=== PATIENT | female | born 1945 | race Two or more races ===

== ENCOUNTER → 2017-11-22 | Outpatient (CLI) | payer MEDICARE ==
--- NOTE | 2017-11-22 11:40 | Diagnostic Imaging Report ---
PROCEDURE: CT ABDOMEN AND PELVIS WITHOUT CONTRAST TECHNIQUE: The abdomen and pelvis were scanned utilizing a multidetector helical scanner from the diaphragm to the lesser trochanter after the oral administration of water. No IV contrast was administered. Coronal and sagittal multiplanar reformations were obtained. COMPARISON: None. INDICATIONS: RIGHT FLANK PAIN FINDINGS: ABSENCE OF INTRAVENOUS CONTRAST DECREASES SENSITIVITY FOR DETECTION OF FOCAL LESIONS AND VASCULAR PATHOLOGY. LOWER THORAX: A 3 mm nodule along the right major fissure (series 3, image 3) is indeterminate, likely a benign intraparenchymal lymph node. HEPATOBILIARY: No focal hepatic lesions. No biliary ductal dilatation. SPLEEN: No splenomegaly. PANCREAS: No focal masses or ductal dilatation. ADRENALS: No adrenal nodules. KIDNEYS/URETERS: No hydronephrosis, stones, or solid mass lesions. 1.3 cm hypodensity in the interpolar region of the right kidney (series 3, image 61) is probably a cyst. 1.0 cm homogenously hyperdense lesion in the inferior pole of the right kidney (series 3, image 67) measures 86.7 HU. This probably represents a hemorrhagic cyst. PELVIC ORGANS/BLADDER: Coarse calcifications in the posterior uterus probably reflect degenerated fibroid. The bladder is unremarkable. PERITONEUM / RETROPERITONEUM: No free air or fluid. LYMPH NODES: No lymphadenopathy. VESSELS: Moderate atherosclerotic calcifications of aorta and its branches. GI TRACT: No distention or wall thickening. Visualized portion of the appendix is normal. The appendiceal tip is obscured by surrounding bowel loops. Small hiatal hernia. BONES AND SOFT TISSUES: Postsurgical changes of prior left mastectomy are partially visualized. Degenerative spondylosis at L3-L4. IMPRESSION: No renal or ureteral stones. No specific findings to explain the patient's pain. There is a 1.0 cm hyperdense lesion in the right kidney which probably represents a hemorrhagic cyst. Consider follow up renal ultrasound in 3-6 months for further evaluation. Dictated by: Nilesh Weiner M.D. on 11/22/2017 at 11:42 Electronically approved by: Nilesh Weiner M.D. on 11/22/2017 at 11:42
== END ==
LOC: CT 10:43
PROVIDERS: ATTEND Urology
DX: N20.0 Calculus of kidney (principal)
CPT/HCPCS: 74176

== ENCOUNTER → 2017-11-28 | Outpatient (CLI) | payer MEDICARE ==
--- NOTE | 2017-11-28 16:18 | Diagnostic Imaging Report ---
Examination: CT Thoracic Spine without Contrast History: Back pain since Sunday. Comparison studies: None Technique: Axial images were reformatted obtained through the thoracic spine. Coronal and sagittal reconstructions obtained from the axial data. Intravenous contrast: None Findings: Alignment: Normal kyphosis. No scoliosis. Soft tissues: Atherosclerotic calcification of the thoracic aorta. Paraspinal muscles: No abnormalities Vertebrae: No fractures, infection or neoplasm. Degenerative changes: Known degenerative disc or foraminal or canal stenosis. There is, however, right lateral bridging osteophytosis from T3 through T9. Additional finding: Left apical pleural thickening. IMPRESSION: No acute thoracic spine abnormality. Signed by: Dr. Crystal Sun M.D. on 11/28/2017 4:14 PM
== END ==
LOC: CT 13:53
PROVIDERS: ATTEND Family Medicine
DX: M54.6 Pain in thoracic spine (principal)
CPT/HCPCS: 72128

== ENCOUNTER → 2019-02-10 | Outpatient (CLI) | payer MEDICARE | LOC: RAD 12:23 | PROVIDERS: ATTEND Family Medicine | DX: R60.0 Localized edema (principal) | CPT/HCPCS: 93971 ==

== ENCOUNTER → 2019-03-28 | Outpatient (CLI) | payer MEDICARE | LOC: RAD 13:14 | PROVIDERS: ATTEND Family Medicine | DX: R60.0 Localized edema (principal) | CPT/HCPCS: 93971 ==

== ENCOUNTER 2019-04-09 08:15 | Emergency (ER) | payer MEDICARE ==
[~2019-04-09] VITALS: Ht 157.5 cm; Wt 69.4 kg
--- OUTSIDE RECORDS SUMMARY | 2019-04-09 08:17 | XMS REPORT ---
Author Author [facility] Address Unknown Phone Unavailable Care Team Providers Care Manager Video Games Name Role Phone Prem BERNARD Unavailable Unavailable HAMPEL, GRETCHEN Unavailable Unavailable Payers Payer Name Policy Type Policy Number Effective Date Expiration Date Problems This patient has no known problems. Allergies, Adverse Reactions, Alerts Allergy Name Allergy Type Status Severity Reaction(s) Onset Date Inactive Date Treating Clinician Comments phenazopyridine HCl DA Active [place] 2010-08-19 00:00:00 codeine DA Active [place] 2010-08-19 00:00:00 Medications This patient has no known medications. Results Test Description Test Time Test Comments Text Results Atomic Results Result Comments [facility] 2018-04-19 13:15:00 RUN DATE: 04/19/18 [place] [facility] PAGE 1 RUN TIME: 1316 Specimen Inquiry RUN USER: INTERFACE PATIENT: PARTH STAFFORD LOC: YASH U #: [id number] AGE/SX: 72/F [facility] DR: Amrik Goyal MD : 43 BED: A DIS: 04/16/18 STATUS: DIS Prem TLOC: SPEC #: [id number] RECD: 04/15/18 STATUS: [place] REQ #: [id number] RAJNI: 04/15/[address]: Amrik Goyal MD ENTERED: 04/15/18 SP TYPE: AXILLA OTHR DR: Arpita Bernard MD TUMOR REGISTRYORDERED: GROSS COPIES TO: Amrik Goyal MD [address] [place] [address] Arpita Bernard MD [address] [place], [place] [id number] TUMOR REGISTRY MARKERS: ABNORMAL TISSUE, FROZEN SECTIONS, MALIGNANCY PROCEDURES: GROSS (04/19/18-1016) TISSUES: 1. RIGHT AXILLARY REGION - SENTINAL NODE 2. RIGHT BREAST, NOS - TOTAL MASTECTOMY CLINICAL HISTORY COLLECTION DATE: 04/15/18 CARCINOMA RIGHT BREAST COMMENT CAP Approved Surgical Pathology Cancer Case Rtforql-Ibbpet-Esutzglv Carcinoma of the Breast Procedure: Total mastectomy Specimen laterality: Right Tumor site: Upper outer quadrant Tumor size: Greatest dimension of largest invasive focus: 2.5 cm Histologic type: Invasive carcinoma of no special type (ductal, not otherwise specified) Histologic grade: CONTINUED ON NEXT PAGE RUN DATE: 04/19/18 [place] [employer] [facility] PAGE 2 RUN TIME: 1316 Specimen Inquiry RUN USER: INTERFACE --------- SPEC #: [id number] PATIENT: GILBERT STAFFORDTY #[id number] (Continued) COMMENT (Continued) Glandular tubular formation: Score 3 Nuclear pleomorphism: Score 2 Mitotic rate: Score 1 Overall grade: Grade 2 (Score 6) Ductal carcinoma in situ: Not identified Surgical margins: Uninvolved by invasive carcinoma: 1.5 cm from anterior superior margin Regional lymph nodes: Uninvolved by tumor cells Number of sentinel lymph nodes examined: 2 Number of lymph nodes examined: 2 Treatment effect: No known presurgical therapy Lymphovascular invasion: Not identified Pathologic stage classification: (p)TNM, (AJCC 8th edition) pT2 pN0 Ancillary studies are reported to have been performed on previous biopsy ([facility] specimen ID# [id number], report pending). FINAL DIAGNOSIS Right axillary sentinel lymph nodes, excision: TWO LYMPH NODES WITH REACTIVE FEATURES (0/2) NEGATIVE FOR MALIGNANCY Right breast, simple mastectomy: INVASIVE DUCTAL CARCINOMA WITH CENTRAL SCLEROSIS, HISTOLOGIC GRADE 2, see microscopic description and comment LESION MEASURES 2.5 CM IN GREATEST DIAMETER LESION IDENTIFIED 1.5 CM FROM CLOSEST SURGICAL MARGIN, ANTERIOR SUPERIOR OTHER SURGICAL MARGINS OF RESECTION MORE WIDELY UNINVOLVED BY TUMOR NO LYMPHOVASCULAR INVASION IDENTIFIED NIPPLE, NO PATHOLOGIC ALTERATION SKIN WITH SOLAR ELASTOSIS, NEGATIVE FOR MALIGNANCY NO INTRADUCTAL CARCINOMA COMPONENT IDENTIFIED PATCHY MILD STROMAL FIBROSIS IN ADJACENT BREAST TISSUE RRB/adrian A [phone], [phone] MACROSCOPIC The first specimen is received fresh labeled with the patient's name and identified as "right axillary sentinel lymph node". It consists of two lymph nodes identified within yellow fatty tissue. The smaller lymph node measures 0.6 cm in greatest diameter and the larger lymph node measures 2.5 X 1.7 X 1.0 cm. Both lymph nodes are entirely submitted for frozen section evaluation. Frozen section diagnosis: CONTINUED ON NEXT PAGE RUN DATE: 04/19/18 [facility] PAGE 3 RUN TIME: 1316 Specimen Inquiry RUN USER: INTERFACE SPEC #: [id number] PATIENT: EMIGDIO STAFFORDMICAELA #[id number] (Continued) MACROSCOPIC (Continued) TWO LYMPH NODES, NO MALIGNANCY IDENTIFIED, DEFER TO PERMANENT SECTIONS (RRB/DMW) The staining of the fresh frozen section is adequate. Section Code: FS1A- one lymph node bisected; 1B-1C- one lymph node bisected. The second specimen is received in formalin, labeled with the patient's name and identified as "right total mastectomy". It consists of a simple mastectomy specimen with additional fatty tissue beneath the inferior portion of the skin ellipse. The skin ellipse is lo with medium pigmentation and measures 21.5 X up to 12.2 cm. The areola and nipple are present. The areola measures 4.5 X 4.0 cm. The nipple is slightly everted. The breast measures 22 cm from medial to lateral, 23.5 cm from superior to inferior and ranges in thickness from 3.0 cm inferiorly up to 6.8 cm and the thickest portion of the breast (beneath the skin ellipse). No focal lesions are seen on the skin surface. A firm lo mass is palpable in the central portion of the right upper quadrant. The lesion is lo with minute areas of hemorrhage. The lesion measures 2.5 X 2.5 X up to 1.5 cm. The lesion occurs 1.5 cm from the anterior superior margin of resection, 4.5 cm from deep margin of resection and 6.5 from the anterior inferior margin of resection. Tumor is identified 3.0 cm beneath the skin surface. The lesion is well delineated from the surrounding adipose tissue and has pushing to irregular borders. Sectioning through the remainder of the breast shows approximately 95% fatty tissue with minimal fibrous parenchyma. No other focal lesions are seen. Ink Code: blue, margin superior to skin ellipse; green, margin inferior to skin ellipse; black, deep. Section Code: 2A- nipple; 2B-2C- sections of lesion; 2D-2E- sections of closest margins, perpendicular sections; 2F- skin from area overlying tumor; 2G- sales representative raw fibers upper inner quadrant; 2H- sales representative raw fibers outer quadrant. GROSS PERFORMED AT [facility] [address] [place] [address], [place] [address] [phone] MICROSCOPIC Sections of the first specimen show two lymph nodes with reactive features. No metastatic carcinoma is identified. Sections from the second specimen show a well delineated area of invasive d uctal carcinoma with prominent central sclerosis. Calcifications are not identified and confluent areas of necrosis are not seen. Very focal hemorrhage is present. The tumor cells are arranged as solid aggregates and nests with little tubule formation (3/3). The malignant cells have moderately pleomorphic nuclei, intermediate nuclear grade CONTINUED ON NEXT PAGE RUN DATE: 04/19/18 [facility] PAGE 4 RUN TIME: 1316 Specimen Inquiry RUN USER: INTERFACE SPEC #: [id number] PATIENT: PARTH STAFFORD #[id number] (Continued) MICROSCOPIC (Continued) (2/3). Mitotic activity is low (1/3). This gives a Cranston histologic score of 6 corresponding to a histologic grade 2 (moderately differentiated). The surgical margins of resection are uninvolved with the closest margin being anterior superior. All other margins are uninvolved. No lymphovascular invasion is identified. Sections of the nipple and skin are negative for malignancy. MICROSCOPIC PERFORMED AT [facility] All of the stains, including any controls performed, stain appropriately. [facility] [address] [place] [address] [phone] PERFORMING SITE Diagnosis performed at: [facility] [address] [place] [address] Signed SIGNATURE ON FILE [facility] 04/19/[address] THORACIC SPINE WO [place] [address] Patient Name: PARTH STAFFORD MR #: [id number] : 1945 Age/Sex: 72/F Req #: [id number] Adm Physician: Ordered by: ARPITA BERNARD MD Report #: [id number] Location: CT Room/Bed: Procedure: [id number] CT/CT THORACIC SPINE WO Exam Date: 11/28/17 Exam Time: 1505 REPORT STATUS: Signed Examination: CT Thoracic Spine without Contrast History: Back pain since Sunday. Comparison studies: None Technique: Axial images were reformatted obtained through the thoracic spine. Coronal and sagittal reconstructions obtained from the axial data. Intravenous contrast: None Findings: Alignment: Normal kyphosis. No scoliosis. Soft tissues: Atherosclerotic calcification of the thoracic aorta. Paraspinal muscles: No abnormalities Vertebrae: No fractures, infection or neoplasm. Degenerative changes: Known degenerative disc or foraminal or canal stenosis. There is, however, right lateral bridging osteophytosis from T3 through T9. Additional finding: Left apical pleural thickening. IMPRESSION: No acute thoracic spine abnormality. Signed by: Dr. Ani Sun M.D. on 11/28/2017 4:14 PM Dictated By: ANI SCHULTE MD 13 Transcribed By: YFN on 11/28/171613 COPY TO: ARPITA BERNARD MD CT ABDOMEN/PELVIS WO [place] [address] Patient Name: PARTH STAFFORD MR #: [id number] : 1945 Age/Sex: 72/F Req #: [id number] Adm Physician: Ordered by: GRETCHEN OCHOA MD Report #: [id number] Location: CT Room/Bed: Procedure: [id number] CT/CT ABDOMEN/PELVIS WO Exam Date: 11/22/17 Exam Time: 1110 REPORT STATUS: Signed PROCEDURE: CT ABDOMEN AND PELVIS WITHOUT CONTRAST TECHNIQUE: The abdomen and pelvis were scanned utilizing a multidetector helical scanner from the diaphragm to the lesser trochanter after the oral administration of water. No IV contrast was administered. Coronal and sagittal multiplanar reformations were obtained. COMPARISON: None. INDICATIONS: RIGHT FLANK PAIN FINDINGS: ABSENCE OF INTRAVENOUS CONTRAST DECREASES SENSITIVITY FOR DETECTION OF FOCAL LESIONS AND VASCULAR PATHOLOGY. LOWER THORAX: A 3 mm nodule along the right major fissure (series 3, image 3) is indeterminate, likely a benign intraparenchymal lymph node. HEPATOBILIARY: No focal hepatic lesions. No biliary ductal dilatation. SPLEEN: No splenomegaly. PANCREAS: No focal masses or ductal dilatation. ADRENALS: No adrenal nodules. KIDNEYS/URETERS: No hydronephrosis, stones, or solid mass lesions. 1.3 cm hypodensity in the interpolar region of the right kidney (series 3, image 61) is probably a cyst. 1.0 cm homogenously hyperdense lesion in the inferior pole of the right kidney (series 3, image 67) measures 86.7 HU. This probably represents a hemorrhagic cyst. PELVIC ORGANS/BLADDER: Coarse calcifications in the posterior uterus probably reflect degenerated fibroid. The bladder is unremarkable. PERITONEUM / RETROPERITONEUM: No free air or fluid. LYMPH NODES: No lymphadenopathy. VESSELS: Moderate atherosclerotic calcifications of aorta and its branches. GI TRACT: No distention or wall thickening. Visualized portion of the appendix is normal. The appendiceal tip is obscured by surrounding bowel loops. Small hiatal hernia. BONES AND SOFT TISSUES: Postsurgical changes of prior left mastectomy are partially visualized. Degenerative spondylosis at L3-L4. IMPRESSION: No renal or ureteral stones. No specific findings to explain the patient's pain. There is a 1.0 cm hyperdense lesion in the right kidney which probably represents a hemorrhagic cyst. Consider follow up renal ultrasound in 3-6 months for further evaluation. Dictated by: Mellisa Weiner M.D. on 11/22/2017 at 11:42 Electronically approved by: Mellisa Weiner M.D. on 11/22/2017 at 11:42 Dictated By: MELLISA WEINER MD 1142 Transcribed By: RJ on 11/22/17 1142 COPY TO: GRETCHEN OCHOA MD
[2019-04-09] MEDS ORDERED: ASPIRIN 81 MG CHEW TAB PO ONE (08:30)
[2019-04-09 08:53] LABS: BASOPHILS # (AUTO) 0.1 (0.0-0.1); BASOPHILS % 0.8 % (0.0-1.0); EOSINOPHILS # (AUTO) 0.3 (0.0-0.4); EOSINOPHILS % 4.2 % (0.0-6.0); HEMATOCRIT 39.1 % (34.2-44.1); LYMPHOCYTES # (AUTO) 2.3 (1.0-3.2); LYMPHOCYTES % 29.1 % (18.0-39.1); MEAN CORPUSCULAR HEMOGLOBIN 28.1 pg (28-32); MEAN CORPUSCULAR HGB CONC 30.7 g/dL (31-35); MEAN CORPUSCULAR VOLUME 91.6 fL (81-99); MONOCYTES # (AUTO) 0.6 (0.2-0.8); MONOCYTES % 7.1 % (4.4-11.3); NEUTROPHILS # (AUTO) 4.5 (2.1-6.9); NEUTROPHILS % 58.4 % (38.7-80.0); PLATELET COUNT 190 x10e3/uL (140-360); RED BLOOD COUNT 4.27 x10e6/uL (3.6-5.1); RED CELL DISTRIBUTION WIDTH 15.3 % (11.7-14.4)
[2019-04-09] MEDS ORDERED: MORPHINE SULFATE INJ 4 MG/ML INJ 1ML IV ONE (09:00)
[2019-04-09 09:12] LABS: ALANINE AMINOTRANSFERASE 14 IU/L (0-55); ALBUMIN 3.3 g/dL (3.5-5.0); ALBUMIN/GLOBULIN RATIO 0.9 (0.8-2.0); ALKALINE PHOSPHATASE 79 IU/L (40-150); ANION GAP 12.5 mmol/L (8-16); BLOOD UREA NITROGEN 25 mg/dL (7-26); BUN/CREATININE RATIO 15 (6-25); CARBON DIOXIDE 23 mmol/L (22-29); CHLORIDE 109 mmol/L (98-107); CREATINE KINASE 47 IU/L (29-168); CREATININE, SERUM 1.68 mg/dL (0.57-1.11); EST GLOMERULAR FILTRATION RATE 30 ML/MIN (60-); GLUCOSE 217 mg/dL (74-118); POTASSIUM 4.5 mmol/L (3.5-5.1); SODIUM 140 mmol/L (136-145)
--- NOTE | 2019-04-09 11:02 | Diagnostic Imaging Report ---
EXAM: CT Chest WITHOUT intravenous contrast 04/09/2019 8:28 AM INDICATION: Right chest wall pain COMPARISON: Thoracic spine CT of 11/28/2017, abdomen and pelvis CT of 11/22/2017 TECHNIQUE: Chest was scanned utilizing a multidetector helical scanner from the lung apex through the level of the adrenal glands without administration of IV contrast. Coronal and sagittal reformations were obtained. Routine protocol was performed. IV CONTRAST: None RADIATION DOSE: Total DLP: 407.8 mGy*cm. Dose modulation, iterative reconstruction, and/or weight based adjustment of the mA/kV was utilized to reduce the radiation dose to as low as reasonably achievable. COMPLICATIONS: None FINDINGS: LINES/ TUBES: None. LUNGS AND AIRWAYS: The central airways are patent. No focal consolidation or pulmonary edema. Left apical pleural parenchymal thickening/scarring. Mild thickening/nodularity along the right major fissure. 3 mm right middle lobe pulmonary nodule (series 3 image 51 and 3 mm right lower lobe pulmonary nodules (series 3 image 41, 54). 3 mm dependent right lower lobe calcified granuloma. PLEURA: No pleural effusion or pneumothorax. HEART AND MEDIASTINUM: The thyroid gland is normal. No supraclavicular, mediastinal, hilar, or axillary lymphadenopathy. The heart is not enlarged. Scattered atherosclerotic calcifications of the coronary arteries and aorta. No pericardial effusion. UPPER ABDOMEN: Limited noncontrast enhanced images of the upper abdomen demonstrate no focal abnormality of the partially visualized liver, gallbladder, spleen, pancreas, adrenals, or left kidney. BONES: No acute osseous injury. No suspicious lytic or blastic lesions. SOFT TISSUES: Post surgical changes of the left breast and axilla with surgical clips in place. IMPRESSION: No acute findings in the chest. Scattered 3 mm pulmonary nodules as above. If the patient is low risk, no routine follow-up is needed. If the patient is high risk, CT is optional at 12 months. Atherosclerotic calcifications including of the coronary arteries. Signed by: Girish Glasgow MD on 04/09/2019 10:59 AM
[2019-04-09 11:38] VITALS: BP 149/74
[2019-04-09] MEDS ORDERED: HYDROCODONE/APAP 5MG-325MG TAB PO ONE (12:00)
== END 2019-04-09 11:39 | disposition home or self-care (01) ==
LOC: ER 08:15
DX: R07.89 Other chest pain (principal); N28.9 Disorder of kidney and ureter, unspecified; R91.8 Other nonspecific abnormal finding of lung field; I10 Essential (primary) hypertension; Z85.3 Personal history of malignant neoplasm of breast
CPT/HCPCS: 36415; 71250; 80053; 82550; 82553; 84484; 85025; 93005; 99284; J2270

== ENCOUNTER → 2019-10-27 | Outpatient (CLI) | payer MEDICARE ==
--- NOTE | 2019-10-27 16:08 | Diagnostic Imaging Report ---
EXAMINATION: HAND 3+ VIEWS RIGHT INDICATION: Right hand pain COMPARISON: None FINDINGS: No acute fracture or dislocation. Alignment is anatomic. Moderate degenerative changes of the thumb MCP and IV joints and index DIP joint. Mild scattered degenerative changes elsewhere. Soft tissues appear unremarkable. IMPRESSION: No acute osseous injury. Multifocal degenerative changes as above. Signed by: Girish Glasgow MD on 10/27/2019 4:04 PM
== END ==
LOC: RAD 15:04
PROVIDERS: ATTEND Family Medicine
DX: M19.041 Primary osteoarthritis, right hand (principal)

== ENCOUNTER → 2021-02-22 | Outpatient (CLI) | payer MEDICARE ==
[~2021-02-22] MED LIST: REGADENOSON 0.4 MG/5 ML SYR IV ONE
== END ==
LOC: NM 09:59
PROVIDERS: ATTEND Internal Medicine
DX: R06.02 Shortness of breath (principal)
CPT/HCPCS: 78452; 93017; 93306; A9502; J2785